=== PATIENT | male | born 1980 | race African-American/Black ===

== ENCOUNTER 2022-10-02 11:03 | Day surgery (SDC) | payer OTHER ==
[~2022-10-02] VITALS: Ht 182.9 cm; Wt 103.9 kg
[~2022-10-02 11:03] MED LIST: ACETAMINOPHEN 1000MG 100ML IV BAG As Ordered ONE; MIDAZOLAM INJ 2MG/2ML VIAL As Ordered ONE; ONDANSETRON 4MG 2ML VIAL As Ordered ONE; ROCURONIUM BROMIDE 50MG/5ML VIAL As Ordered ONE; SUGAMMADEX SODIUM 500 MG/5 ML VIAL (BRIDION) As Ordered ONE; fentaNYL 100 MCG/2 ML INJECTION As Ordered ONE; propofoL 200 MG/20 ML VIAL As Ordered ONE
[2022-10-02] MEDS ORDERED: LR 1,000 ML IV SCH ×3 (11:10→13:50)
[2022-10-02] MEDS ORDERED: LIDOCAINE W/EPINEPHRINE 1% 20ML VIAL As Ordered ONE (11:21)
[2022-10-02] MEDS ORDERED: OXYMETAZOLINE 0.05% NASAL SPRAY (AFRIN) As Ordered ONE (11:21)
[2022-10-02] MEDS ORDERED: COCAINE 4% 4ML NASAL SOLUTION BTL As Ordered ONE (11:22)
[2022-10-02] MEDS ORDERED: VITA30004 PO (11:32)
[2022-10-02] MEDS ORDERED: MULT-90 PO (11:32)
[2022-10-02] MEDS ORDERED: oxyCODONE 5MG TAB PO PRN (13:25)
[2022-10-02] MEDS ORDERED: HYDROMORPHONE HCL 0.5 MG/ 0.5 ML SYRINGE IV PRN (13:25)
[2022-10-02] MEDS ORDERED: fentaNYL 100 MCG/2 ML INJECTION IV PRN (13:25)
[2022-10-02] MEDS ORDERED: ONDANSETRON 4MG 2ML VIAL IV PRN ×2 (13:25→13:55)
[2022-10-02] MEDS ORDERED: ANEXSIA, NORCO 7.5MG/325MG TABLET(HYDROCODONE/APAP) PO PRN (13:50)
[2022-10-02] MEDS ORDERED: OXYMETAZOLINE 0.05% NASAL SPRAY (AFRIN) PRN (13:50)
[2022-10-02 15:21] VITALS: BP 147/82
== END 2022-10-02 15:54 | disposition home or self-care (01) ==
LOC: M SDC 11:03
PROVIDERS: ATTEND Otolaryngology
DX: J34.2 Deviated nasal septum (principal); J34.3 Hypertrophy of nasal turbinates
CPT/HCPCS: 30140; 30520; J1100; J2405

== ENCOUNTER → 2022-11-29 | Outpatient (CLI) | payer OTHER ==
[~2022-11-29] MED LIST changes: -ACETAMINOPHEN 1000MG 100ML IV BAG As Ordered ONE; -MIDAZOLAM INJ 2MG/2ML VIAL As Ordered ONE; +MULT-90 PO; -ONDANSETRON 4MG 2ML VIAL As Ordered ONE; -ROCURONIUM BROMIDE 50MG/5ML VIAL As Ordered ONE; -SUGAMMADEX SODIUM 500 MG/5 ML VIAL (BRIDION) As Ordered ONE; +VITA30004 PO; -fentaNYL 100 MCG/2 ML INJECTION As Ordered ONE; -propofoL 200 MG/20 ML VIAL As Ordered ONE
== END ==
LOC: M PLAIMG 06:37
PROVIDERS: ATTEND Physician Assistant
DX: M75.51 Bursitis of right shoulder (principal); M65.9 Synovitis and tenosynovitis, unspecified

== ENCOUNTER → 2023-05-18 | Outpatient (REF) | LOC: M LAB 11:28 | PROVIDERS: ATTEND Nurse Practitioner Adult Health | DX: Z00.00 Encounter for general adult medical examination without abnormal findings (principal) ==